=== PATIENT | female | born 1995 | race Caucasian/White ===

== ENCOUNTER → 2024-06-19 07:38 | Outpatient (CLI) | payer OTHER, SELFPAY ==
--- NOTE | 2024-06-19 | DI.MRI.S_ITS ---
PROCEDURE: MR LUMBAR SPINE WO CON INDICATIONS: Low back pain, unspecified TECHNIQUE: Noncontrast sagittal T1 spin echo and T2 fast echo, sagittal STIR, and T2 fast spin echo through the lumbar spine. In cases with scoliosis, additional coronal T2 fast spin echo may be performed. COMPARISON: None. FINDINGS: Image quality: Excellent. Alignment and Curvature: There is normal bony alignment. Bone Marrow: Marrow is of normal overall signal. No acute vertebral body compression fractures. Spinal Cord: Conus medullaris terminates at the L1 level. Visualized cord demonstrates normal signal and size. Paraspinous Soft Tissues: No paravertebral masses. T12-L1: Normal appearance. L1-L2: Normal appearance. L2-L3: Normal appearance. L3-L4: Normal appearance. L4-L5: Disc height is maintained. Broad-based disc bulge present. High-intensity zone noted in the posterior annulus reflecting annular fissure or tear. Mild central stenosis. No foraminal stenosis L5-S1: Disc space narrowing and broad-based disc bulge. Short high-intensity zone in the posterior annulus reflects annular fissure or tear. No central stenosis. No foraminal stenosis. IMPRESSION: Degenerative disc disease at L4-5 and L5-S1 without significant central or foraminal stenosis throughout the exam Approved by: Gómez Samayoa M.D. on 06/19/2024 at 13:03
== END ==
DX: M51.360 Other intervertebral disc degeneration, lumbar region with discogenic back pain only (principal); M51.370 Other intervertebral disc degeneration, lumbosacral region with discogenic back pain only; M48.061 Spinal stenosis, lumbar region without neurogenic claudication
CPT/HCPCS: 72148

== ENCOUNTER 2025-07-28 06:11 | Day surgery (SDC) | payer OTHER, SELFPAY ==
[2025-07-23 10:53] VITALS: BMI 30.4
--- NOTE | 2025-07-28 | PATH_ITS ---
[facility] Accession Number: [id number] No. of containers..01 Tissue . 01 Material submitted: . fallopian tube - BILATERAL FALLOPIAN TUBES . 01 Diagnosis: BILATERAL FALLOPIAN TUBES, BILATERAL SALPINGECTOMY: Histologically unremarkable fimbriated fallopian tubes, full cross sections. Negative for malignancy. [facility] [place], [place] 08/01/2025 1430 Local . 01 Electronically signed: . Amita Kelly DO, Pathologist NPI- [id number] . 01 Gross description: . Received in formalin with two patient identifiers, and bilateral fallopian tubes are bilateral undesignated fallopian tubes. The longer fallopian tube is 6.5 cm in length by 0.5 cm diameter. The shorter fallopian tube is 5.8 cm in length by 0.5 cm in diameter. The serosa is brown and smooth. The cut surface is garcia with pinpoint lumens. Assistant Boiler Operator sections are submitted as follows: A1: Longer fallopian tube with entire bisected fimbriae. A2: [place] fallopian tube with entire bisected fimbriae. ([id number]) /MRV 07/30/2025 0829 Local . 01 Pathologist provided ICD-10: Z30.2 . 01 CPT . 817521 Specimen Comment: A courtesy copy of this report has been sent to [facility] Performed at: [address] [address], [place], [place] [id number] MD Yon Morales MD Phone: [phone]
[2025-07-28] MEDS: LACTATED RINGERS 1,000 ML 42 ML IV ×2 (07:00→08:24)
[2025-07-28 07:06] VITALS: BP 131/89; PULSE 97; RESP 16; TEMP 36.6; O2SAT 97
[2025-07-28] MEDS: ACETAMINOPHEN 325 MG TABLET 975 MG PO (07:18)
--- NOTE | 2025-07-28 07:29 | P.HPOB_ITS ---
History of Present Illness History of Present Illness Narrative: Linda Dukes is a 29 year old female G0 who presents for desired elective permanent surgical sterilization. Patient last seen in office 05/30/25 for preoperative surgical consultation. She denies interval changes in personal or family health history and desires to proceed with procedure as scheduled. She declines concomittant placement of LNG-IUD at time of procedure for purposes of menstrual management [facility] Medical History (Updated 07/28/25 @ 07:32 by Tahira Gu MD) Encounter for sterilization Social History Smoking Status: Never smoker Meds Home Medications and Allergies Home Medications ?Medication ?Instructions ?Recorded ?Confirmed ?Type hydroxyzine HCl 50 mg tablet 50 mg PO 4XD PRN anxiety 05/30/25 07/28/25 History loratadine 10 mg tablet 10 mg PO DAILY 05/30/2507/08 History norethindrone acetate 1.5 1 tab PO DAILY 05/30/2507/08 History mg-ethinyl estradiol 30 mcg tablet (Junel) Allergies Allergy/AdvReac Type Severity Reaction Status Date / Time No Known Drug Allergies Allergy Verified 07/28/25 07:04 Review of Systems Review of Systems ROS: Yes All systems reviewed with the patient and are negative except as otherwise documented Exam Vital Signs (past 8 hours): - 07/28/25 07:06 Temperature 98 F Pulse Rate 97 H Respiratory Rate 16 Blood Pressure 131/89 Pulse Oximetry 97 Oxygen Delivery Method Room Air Oxygen Delivery Method Room Air Const General: cooperative, healthy appearing and comfortable Orientation: alert, awake and oriented x3 Limitations: mental status not altered Resp Effort & Inspection: normal respiratory effort and able to speak in complete sentences Cardio Pulses: normal peripheral pulses GI Palpation: soft Other: deferred Skin General: no rashes or lesions noted Neuro General: patient alert, patient awake and patient oriented x3 Extrem General: normal to inspection Psych Mental Status: mental status grossly normal Judgment: judgment good Assessment & Plan Assessment and plan (1) Encounter for sterilization: Status: Acute Plan 29yo G0 presents for scheduled elective permanent surgical sterilization Patient affirms desire to proceed with procedure as scheduled anticipate dc to home pending clinical course, outpatient f/u as scheduled Time-Based Coding :: [TOTAL MINUTES] spent with patient and on the chart (including review of chart, obtaining history, exam, reviewing outside data, placing orders, documenting exam and treatment plan, and counseling patient) on [DATE].
--- NOTE | 2025-07-28 07:33 | PM.PREOP ---
Pre-operative Note Interval Note History & Physical reviewed/Exam performed by Physician: Yes Changes to H&P: No ASA Class (for procedural sedation): I
--- NOTE | 2025-07-28 08:16 | SUR.OPER ---
Lithotomy on padded OR bed. [place] Pad Positioner under torso. Head on pillow, arms padded and tucked at sides. Legs secured in padded yellow fins stirrups.
[2025-07-28] MEDS: BUPivacaine 0.25% W/ EPI (PF) 30 ML VIAL INJ (08:19)
[2025-07-28 08:47] VITALS: BP 124/64; PULSE 97; RESP 20; TEMP 36.2; O2SAT 99
[2025-07-28 08:55] VITALS: BP 113/57; PULSE 93; RESP 24; O2SAT 96
--- NOTE | 2025-07-28 08:56 | P.OP_ITS ---
Operative Date/Time/Diagnoses Date of procedure: 07/28/25 Time of procedure: 08:00 Pre-op diagnosis: desired permanent surgical sterilization Post-op diagnosis: same Procedure & Clinicians Procedure: laparoscopic bilateral salpingectomy Same procedure(s) as scheduled: Yes Indications: undesired future fertility Surgeon: Tahira Gu Assisted?: No Anesthesia Type: General Operative Notes Findings: normal appearing liver edge, gallbladder, appendix scattered powder burn and vesicular implants along pelvic peritoneum, posterior uterine serosa and cul-de-sac filmy adhesion of bowel to L lateral IP/sidewall Closure Type: primary Specimen(s): other (bilateral fallopian tubes ) Applied: none Estimated Blood Loss (mL): 2 Blood products transfused: none Procedure in detail: The patient was taken to the operating room, placed on the operating table in the supine position and intubated with ETT.? The patient was then placed in the lithotomy position with her legs in Ag stirrups.? The patient was then examined under anesthesia with the above findings, then prepped and draped in a sterile fashion.?Time out was performed. A sterile spongestick was placed in the vagina for atraumatic uterine manipulation. Attention was then turned to abdominal portion of the case. The infraumbilical region was superficially infiltrated with 8cc 0.25% bupivicaine with epi for local analgesia. A 5mm incision was made infraumbil ically and abdominal entry was achieved under direct visualization using the 5mm VisaPort trocar.? Abdomen was insufflated to 15mmHg.? Two left lateral 5-mm ports were placed in a similar manner under direct visualization.? The uterus was anteverted and abdominal survey was noted with findings as noted above. The Powerseal was used to dissect bilateral fallopian tubes away from the mesosalpinx.? The fallopian tubes were amputated at the level of the cornua. Specimens were withdrawn via lateral trocars under direct visualization and passed off the field for permanent study. All wound beds were inspected and noted to be hemostatic. Insufflation was stopped and gas was allowed to escape via the trocars. The lateral trocars were removed under direct visualization followed by the infraumbilical trocar. The skin of all incisions was closed using 4-0 monocryl in subcuticular fashion followed by application of dermabond. All counts correct x2. Patient tolerated the procedure well. Patient was awakened from anesthesia, extubated and transported to PACU in stable condition without complication. Complications: none Post-operative Condition: stable Disposition: PACU Plan for aftercare: anticipate dc to home from PACU, routine outpatient postoperative f/u as scheduled
[2025-07-28 09:00] VITALS: BP 114/62; PULSE 87; RESP 13; O2SAT 95
[2025-07-28 09:05] VITALS: BP 115/61; PULSE 82; RESP 16; O2SAT 95
[2025-07-28 09:10] VITALS: BP 119/69; PULSE 82; RESP 18; O2SAT 96
== END 2025-07-28 10:15 | disposition home or self-care (01) ==
PROVIDERS: Referring Provider Obstetrics & Gynecology; Visit Provider Obstetrics & Gynecology
PROC: 0UT74ZZ Resection of Bilateral Fallopian Tubes, Percutaneous Endoscopic Approach (ICD-10-PCS; CPT 58661; principal; 2025-07-28 07:45)
DX: Z30.2 Encounter for sterilization (principal); N73.6 Female pelvic peritoneal adhesions (postinfective)
CPT/HCPCS: 58661; J1100; J1171; J2405; J2704; J3010; J3490; J7120